=== PATIENT | male | born 1980 | race Caucasian/White ===

== ENCOUNTER 2016-07-30 12:22 | Emergency (ER) | payer BC ==
[2016-07-30 12:31] VITALS: BP 153/96
--- NOTE | 2016-07-30 12:41 | UC ---
Skin Complaint HPI - HPI Summary HPI Summary: I&D og abscess left axilla, seemed to get better-but last night had a hard lump return also got a call that antibiotic should be changed so he came here for re -evaluation - History of Current Complaint Chief Complaint: UCSkin Time Seen by Provider: 07/30/16 12:28 Stated Complaint: WOUND RECHECK Hx Obtained From: Patient Onset/Duration: Gradual Onset, Still Present, Worse Since - yesterday Skin Exposure Onset/Duration: Minutes Ago Timing: Constant Onset Severity: Moderate Current Severity: Mild Location: Discrete - left axilla Character: Redness, Raised - hard with no fluctuant mass, Painful Aggravating: Nothing Alleviating: Nothing Associated Signs & Symptoms: Positive: Negative. Negative: Red Streaks, Joint Swelling - Allergy/Home Medications Allergies/Adverse Reactions: Allergies Allergy/AdvReac Type Severity Reaction Status Date / Time No Known Allergies Allergy Verified 07/08/15 11:44 Review of Systems Constitutional: Negative Skin: Other - abscess left axilla Eyes: Negative ENT: Negative Respiratory: Negative Cardiovascular: Negative Gastrointestinal: Negative Genitourinary: Negative Motor: Negative Neurovascular: Negative Musculoskeletal: Negative Neurological: Negative Psychological: Negative All Other Systems Reviewed And Are Negative: Yes PMH/Surg Hx/FS Hx/Imm Hx Previously Healthy: Yes - Surgical History Surgical History: Yes Surgery Procedure, Year, and Place: bilateral hip pinning - Family History Known Family History: Positive: Cardiac Disease, Hypertension - Social History Occupation: Employed Full-time Lives: With Family Alcohol Use: Weekly Substance Use Type: None, Marijuana Smoking Status (MU): Heavy Every Day Tobacco Smoker Type: Cigarettes Amount Used/How Often: 1 pack daily Length of Time of Smoking/Using Tobacco: 15 years Have You Smoked in the Last Year: Yes Cessation Counseling: Patient Advised to Stop Physical Exam Triage Information Reviewed: Yes Appearance: Well-Appearing, No Pain Distress, Well-Nourished Vital Signs: Initial Vital Signs Temp 99.1 F 07/30/16 12:27 Pulse 74 07/30/16 12:27 Resp 16 07/30/16 12:27 BP 153/96 07/30/16 12:27 Pulse Ox 98 07/30/16 12:27 Vital Signs Reviewed: Yes Eye Exam: Normal Eyes: Positive: Conjunctiva Clear ENT Exam: Normal ENT: Positive: Normal ENT inspection, Hearing grossly normal. Negative: Nasal congestion, Nasal drainage, Trismus, Muffled/hoarse voice Dental Exam: Normal Neck exam: Normal Neck: Positive: Supple, Nontender, No Lymphadenopathy Respiratory Exam: Normal Respiratory: Positive: Chest non-tender, Lungs clear, Normal breath sounds, No respiratory distress, No accessory muscle use Cardiovascular Exam: Normal Cardiovascular: Positive: RRR, Pulses Normal, Brisk Capillary Refill Musculoskeletal Exam: Normal Musculoskeletal: Positive: Strength Intact, ROM Intact, No Edema Neurological Exam: Normal Neurological: Positive: Alert, Muscle Tone Normal Psychological Exam: Normal Skin Exam: Other Skin: Positive: Other - abscess left axilla, had not fluctlance, non-tender Course/Dx - Course Course Of Treatment: heat packs, change to clindamycin follow with surgery for definitive care - Differential Diagnoses - Skin Complaint Differential Diagnoses: Abscess, Cellulitis, Impetigo - Diagnoses Provider Diagnoses: Recurrent abscess left axilla, nicotine dependant Discharge - Discharge Plan Condition: Stable Disposition: HOME Prescriptions: Clindamycin Cap(NF) [Cleocin 300 mg Cap(NF)] 300 mg PO Q6H #40 cap Patient Education Materials: Abscess (ED), Heat Pack Application (ED) Referrals: Miguel Hawkins MD [Medical Doctor] - 5 Days No Primary Care Phys,NOPCP [Primary Care Provider] -
== END 2016-07-30 12:48 | disposition home or self-care (01) ==
LOC: UCEAST 12:22
DX: L02.412 Cutaneous abscess of left axilla (principal); F17.210 Nicotine dependence, cigarettes, uncomplicated
CPT/HCPCS: 99212; G0463

== ENCOUNTER 2018-04-05 17:27 | Emergency (ER) | payer BC ==
--- OUTSIDE RECORDS SUMMARY | 2018-04-05 17:32 | XMS REPORT | Continuity of Care Document ---
:1980 External Reference #:[id number] Author Name Aaron Zamora M.D. Address [address] [place] [place] [address] Care Team Providers Name Role Phone Aaron Zamora M.D. 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 Family History Date Family Member(s) Problem(s) Comments Father Heart Attack Mother Cancer Social History Type Date Description Comments Sex Unknown Marital Status Single Occupation [employer] Work Status Full-Time Employment ETOH Use Denies alcohol use Tobacco Use Start: Unknown Heavy tobacco smoker (more than 10 cigarettes/day) Smoking Status Reviewed: 03/28/18 Heavy tobacco smoker (more than 10 cigarettes/day) Allergies, Adverse Reactions, Alerts Date Description Reaction Status Severity Comments 01/10/2018 NKDA Active 01/10/2018 Hay Fever Active Medications Medication Date Status Form Strength Qnty SIG Indications Ordering Provider Valacyclovir 01/10/ Active Tablets 500mg 60tabs take one B00.52 Aaron HCL 2018 tablet Zablocki, (500mg) M.D. Once a day Prednisolone 01/10/ Active Suspension 1% 15ml 1 drop B00.52 Aaron Acetate 2018 left eye Zablocki, Once a M.D. day. taper as directed No Active Unknown Medications 2018 - 2017 Immunizations Description No Information Available Vital Signs Description No Information Available Results Description No Information Available Procedures Date Code Description Status 01/10/2018 89074 New Patient Comprehensive Exam Completed Encounters Type Date Location Provider Dx Diagnosis Office Visit 02/13/2018 Aaron White B00.52 Herpesviral 8:30a , chloe Zamora M.D. keratitis Office Visit 01/18/2018 Aaron White B00.52 Herpesviral 9:15a , chloe Zamora M.D. keratitis Plan of Treatment 03/28/2018 - Aaron Zamora M.D.B00.52 Herpesviral keratitisComments:Smoking can increase the risk of developing or worsening any eye related disease, as well as affect your overall health. If you are a smoker, we strongly recommend that you quit.If you are not a smoker, we strongly recommend that you do not start. STOP PREDNISOLONE DROPCONTINUE VALACYCLOVIR, 1 TABLET DAILY CALL WITH ANY RETURN OF EYE IRRITATION OR DECREASED VISIONFollow up:6MONTHS, CORNEA CHECK
[2018-04-05 17:34] VITALS: BP 145/90
--- NOTE | 2018-04-05 17:38 | UC ---
Skin Complaint HPI - HPI Summary HPI Summary: A 37 y/o male accompanied by his girlfriend presents to [facility] c/o progressively worsening boil below left armpit. Pt states is has gotten larger and more painful x 1 month. According to the patient, his boil, located below his left armpit has been progressively becoming more swollen and more painful for the past month. He noted that he had another boil last year in his axilla, that was I+D and resolved. The pain is similar between both, however, the previous boil had copious amounts of discharge, but the current boil has very small amount of discharge. He stated that he tried cutting twice, getting deeper the second time around, but not much discharge was found second to pain. Denies any fevers or chills. Currently on antivirals (Valtrex) for his eye and takes a steroid eye drop. No h.o MRSA. Pt unknown last tdap Pt medications reviewed this visit - I called pharmacy to confirm - History of Current Complaint Chief Complaint: UCSkin Time Seen by Provider: 04/05/18 17:33 Stated Complaint: BOIL UNDER ARM Hx Obtained From: Patient Onset/Duration: Lasting Weeks - 3 months, Still Present, Worse Since Skin Exposure Onset/Duration: Weeks Ago - 3 months, Worse Since: - 1 month progressively getting more swollen and painful Timing: Constant Current Severity: None Pain Intensity: 0 Pain Scale Used: 0-10 Numeric Location: Other - Below left armpit Character: Swelling, Pain Aggravating Factor(s): Nothing Alleviating Factor(s): Nothing Associated Signs & Symptoms: Positive: Negative - Allergy/Home Medications Allergies/Adverse Reactions: Allergies Allergy/AdvReac Type Severity Reaction Status Date / Time No Known Allergies Allergy Verified 04/05/18 17:35 Home Medications: Home Medications Antibiotic ? Name 1 tab PO DAILY 04/05/18 [History] Eye Drop ? Name 1 drop LEFT EYE DAILY 04/05/18 [History] Review of Systems Constitutional: Negative Skin: Other - Boil below left armpit that is swollen and painful Eyes: Negative ENT: Negative Respiratory: Negative Cardiovascular: Negative Gastrointestinal: Negative Genitourinary: Negative Motor: Negative Neurovascular: Negative Musculoskeletal: Negative Neurological: Negative Psychological: Negative Is Patient Immunocompromised?: No All Other Systems Reviewed And Are Negative: Yes PMH/Surg Hx/FS Hx/Imm Hx Previously Healthy: Yes Endocrine History: Diabetes - NEGATIVE Cardiovascular History: Hypertension - NEGATIVE Respiratory History: Asthma - NEGATIVE - Surgical History Surgical History: Yes Surgery Procedure, Year, and Place: bilateral hip pinning - Family History Known Family History: Positive: Cardiac Disease, Hypertension - Social History Occupation: Employed Full-time Lives: With Family Alcohol Use: Occasionally Substance Use Type: None Smoking Status (MU): Heavy Every Day Tobacco Smoker - 1-pack per day Type: Cigarettes Amount Used/How Often: 1 pack daily Length of Time of Smoking/Using Tobacco: 15 years Have You Smoked in the Last Year: Yes Physical Exam - Summary Physical Exam Summary: Vital Signs Reviewed: Yes A+Ox3, no distress Eyes: Conjunctiva Clear ENT: Hearing grossly normal neck: supple Respiratory: Positive: No respiratory distress, No accessory muscle use Cardiovascular: skin color reflect adequate perfusion Musculoskeletal Exam: REVELES x 4 without difficulty Neurological: Positive: Alert, ambulatory without difficulty Psychological: Positive: Normal Response To Family Skin: Positive: left midaxillary line at nipple line pt with 3x3 cm area of erythema with fluctuance and warmth. No axillary lymphadenopathy Triage Information Reviewed: Yes Vital Signs: Initial Vital Signs Temp 97.3 F 04/05/18 17:32 Pulse 84 04/05/18 17:32 Resp 12 04/05/18 17:32 BP 145/90 04/05/18 17:32 Pulse Ox 96 04/05/18 17:32 Vital Signs Reviewed: Yes Course/Dx - Course Course Of Treatment: Pt presents with large abscess left mid ax line at nipple line. I+D with copious purulnet discharge - packing place. culture sent. lico. motrin/apap. demarcated. return for packing removal. Pt decline tdap today. work note. wound care - Diagnoses Provider Diagnoses: abscess I+D with packing placed Procedures - Procedure Summary Procedure Summary: Pt with abscess with fluctuance left mid ax line at level of nipple 3x3cm verbal permission to treat time out completed with RN at bedside pt prepped in usual, sterile fashion Infiltrated with 2% lidocaine 2ml use 11 blade made 1cm laceration copious purulent drainage from wound used mosquito forcep to open loculatins copious irrigation with 250ml sterile saline under pressure placed 6inches 1/4 inch iodofoam packing covered with non-stick gauze and tegaderm woiund demarcated pt tolerated well reviewed with pt wound care s/s infection return precautions Discharge - Sign-Out/Discharge Documenting (check all that apply): Patient Departure - DISCHARGE All imaging exams completed and their final reports reviewed: No Studies - Discharge Plan Condition: Stable Disposition: HOME Prescriptions: DOXYcycline CAP(*) [DOXYcycline 100MG CAP(*)] 100 mg PO BID #20 cap Patient Education Materials: Abscess (ED), Abscess Incision and Drainage (DC) Forms: *Work Release Referrals: [facility] [place] [facility]IAN REFERRAL [Outside] No Primary Care Phys,NOPCP [Primary Care Provider] - Additional Instructions: - Take antibiotics exactly as prescribed until gone - Okay to alternate ibuprofen (Advil, Motrin) 600mg and tylenol every 3 hours for pain. Take with food. Do NOT take for more than 4-5 days. - numbing medication will wear off in approx 90 minutes - leave bandage on until tomorrow. Keep wound clean and dry. Starting tomorrow, okay to remove bandage and replace with a clean, dry bandage as demostrated here - consider getting your tetanus vaccine update when you are here for packing removal - a culture from your wound has been taken - if you need a different antibiotics you will receive a call from a care steamtable attendant railroad - you should have your wound rechecked and packing removed in 36-48 hours - you may return here or go to the emergency department. If you have increased pain, fever, red streaking, fever, chills or any other concerns it is recommended you go to the emergency department - you have been given the contact information for the physician referral center - okay to call for assistance in scheduling with a new primary care provider - Billing Disposition and Condition Condition: STABLE Disposition: Home - Attestation Statements Document Initiated by Keila: Yes Documenting Scribe: Castillo Mae Provider For Whom Keila is Documenting (Include Credential): Kiana Carranza MD Scribe Attestation: Castillo Quintero, scribed for Kiana Carranza MD on 04/05/18 at 1947. Scribe Documentation Reviewed: Yes Provider Attestation: The documentation as recorded by the Castillo cuadra accurately reflects the service I personally performed and the decisions made by me, Kiana Carranza MD
[2018-04-05] MEDS ORDERED: Lidocaine 1%* 5 ML VIAL INJ ONE (18:05)
[2018-04-05] MEDS ORDERED: Acetaminophen TAB* 325 MG PO ONE (18:47)
== END 2018-04-05 19:05 | disposition home or self-care (01) ==
LOC: UCEAST 17:27
DX: L02.412 Cutaneous abscess of left axilla (principal); F17.210 Nicotine dependence, cigarettes, uncomplicated
CPT/HCPCS: 10061; 87070; 87077; 87186; 87205; 99212; A9270-GY; G0463

== ENCOUNTER 2018-04-07 13:06 | Emergency (ER) | payer BC ==
[2018-04-07 15:25] VITALS: BP 146/82
--- NOTE | 2018-04-07 15:31 | UC ---
HPI Wound/Suture Re-check - HPI Summary HPI Summary: The pt is a 37 year old M presenting to for a dressing change. He was here a couple of days ago to drain the abscess and is on doxycycline to get rid of it, and is looking to change the dressing. - History Of Current Complaint Chief Complaint: UCWounds Stated Complaint: WOUND RCHECK Time Seen by Provider: 04/07/18 15:20 Hx Obtained From: Patient Onset/Duration: Lasting Days, Still Present Severity: Mild Pain Intensity: 0 Pain Scale Used: 0-10 Numeric Procedure Type: Dressing for abscess drainage on L ribcage under armpit - Allergies/Home Medications Allergies/Adverse Reactions: Allergies Allergy/AdvReac Type Severity Reaction Status Date / Time No Known Allergies Allergy Verified 04/07/18 15:21 PMH/Surg Hx/FS Hx/Imm Hx Previously Healthy: Yes Endocrine History: Diabetes - negative Cancer History: Other Other Cancer History: none - Surgical History Surgical History: Yes Surgery Procedure, Year, and Place: bilateral hip pinning - Family History Known Family History: Positive: Cardiac Disease, Hypertension Family History: NON CONTRIBUTORY - Social History Alcohol Use: Occasionally Substance Use Type: None Smoking Status (MU): Heavy Every Day Tobacco Smoker Type: Cigarettes Amount Used/How Often: 1 pack daily Length of Time of Smoking/Using Tobacco: 15 years Have You Smoked in the Last Year: Yes Review of Systems Constitutional: Negative - fever Skin: Other - dressed abscess drained inferior to L axilla All Other Systems Reviewed And Are Negative: Yes Physical Exam - Summary Physical Exam Summary: General: well-appearing, no pain distress Skin: L lateral chest just inferior to the axilla, 2.5cm erythematous area with packing inside. Removed packing, minimal pus, mildly tender to palpation Head: normal Eyes: EOMI, VICKI ENT: normal Neck: supple, nontender Respiratory: CTA, breath sounds present Cardiovascular: RRR Abdomen: soft, nontender Bowel: present Musculoskeletal: normal, strength/ROM intact Neurological: sensory/motor intact, A&O x3 Psychological: affect/mood appropriate Triage Information Reviewed: Yes Vital Signs: Initial Vital Signs Temp 98.4 F 04/07/18 15:22 Pulse 82 04/07/18 15:22 Resp 18 04/07/18 15:22 BP 146/82 04/07/18 15:22 Pulse Ox 98 04/07/18 15:22 Vital Signs Reviewed: Yes Course/Dx - Course Course Of Treatment: The packing was removed from the wound by myself. Patient reports it appears improved. He will continue the antibiotic. Come back for recheck if he worsens or has any questions or concerns. Final wound culture results and sensitivities are pending at this time. - Differential Dx - Laceration/Wound Provider Diagnoses: LEFT AXILLARY ABSCESS Discharge - Sign-Out/Discharge Documenting (check all that apply): Patient Departure All imaging exams completed and their final reports reviewed: No Studies - Discharge Plan Condition: Stable Disposition: HOME Patient Education Materials: Abscess (ED) Referrals: [facility] [place] [facility] REFERRAL [Outside] Additional Instructions: FOLLOW UP WITH YOUR DOCTOR IF NOT COMPLETELY IMPROVED. DRESSING CHANGES DAILY. CONTINUE THE DOXYCYCLINE DIRECTED. GET RECHECKED FOR ANY WORSENING OF YOUR CONDITION OR QUESTIONS OR CONCERNS. - Billing Disposition and Condition Condition: STABLE Disposition: Home - Attestation Statements Document Initiated by Keila: Yes Documenting Scribe: Silva Johnson Provider For Whom Keila is Documenting (Include Credential): Octavio Villa MD. Scribe Attestation: Silva Quintero scribed for Octavio Villa MD. on 04/07/18 at 2059. Scribe Documentation Reviewed: Yes Provider Attestation: The documentation as recorded by the Silva cuadra accurately reflects the service I personally performed and the decisions made by , Octavio Villa MD.
== END 2018-04-07 15:55 | disposition home or self-care (01) ==
LOC: UCEAST 13:06
DX: Z51.89 Encounter for other specified aftercare (principal); L02.412 Cutaneous abscess of left axilla
CPT/HCPCS: 99212; G0463

== ENCOUNTER 2018-06-05 00:19 | Emergency (ER) | payer BC ==
[2018-06-05] MEDS ORDERED: Ondansetron INJ* 2 MG/ML VIAL IV ONE (00:44)
[2018-06-05] MEDS ORDERED: Morphine VIAL* 4 MG/ML VIAL (1 ml vial) IV ONE ×2 (00:44→03:08)
--- NOTE | 2018-06-05 00:58 | ED ---
Lower Extremity - HPI Summary HPI Summary: Patient is a 38-year-old male who presents emergency apartment for a right leg injury that occurred just prior to arrival. Patient states he was at a friend' s house when he stepped outside to smoke and slipped on the wet steps slipping down about 4 steps. Patient denies striking his head or loss of consciousness. Patient states he is unable to get up secondary to right hip pain. Patient states he laid outside for about 20 minutes before EMS was called. Patient does admit to drinking several beers tonight. He denies past medical history. He denies headache, neck pain, chest pain, shortness of breath, abdominal pain. Denies numbness, tingling or weakness and right leg. Symptoms are moderate in severity. Moving right leg makes symptoms worse. Rest makes symptoms better. - History of Current Complaint Chief Complaint: EDExtremityLower Stated Complaint: FALL Time Seen by Provider: 06/05/18 00:31 Hx Obtained From: Patient Pain Intensity: 8 - Allergies/Home Medications Allergies/Adverse Reactions: Allergies Allergy/AdvReac Type Severity Reaction Status Date / Time No Known Allergies Allergy Verified 06/05/18 00:29 PMH/Surg Hx/FS Hx/Imm Hx Previously Healthy: Yes - Cancer History Cancer Type, Location and Year: none - Surgical History Surgery Procedure, Year, and Place: bilateral hip pinning Infectious Disease History: No Infectious Disease History: Denies: Traveled Outside the [place] in Last 30 Days - Family History Known Family History: Positive: Cardiac Disease, Hypertension Family History: NON CONTRIBUTORY - Social History Occupation: Employed Full-time Lives: With Family Alcohol Use: Occasionally Substance Use Type: Reports: None Smoking Status (MU): Heavy Every Day Tobacco Smoker Type: Cigarettes Amount Used/How Often: 1 pack daily Length of Time of Smoking/Using Tobacco: 15 years Have You Smoked in the Last Year: Yes Review of Systems Cardiovascular: Negative Negative: Chest Pain Respiratory: Negative Negative: Shortness Of Breath Gastrointestinal: Negative Negative: Abdominal Pain Positive: Other - Right hip and ankle pain Negative: Headache, Weakness, Paresthesia, Numbness, Syncope All Other Systems Reviewed And Are Negative: Yes Physical Exam Triage Information Reviewed: Yes Vital Signs On Initial Exam: Initial Vitals Temp Pulse Resp BP Pulse Ox 99.0 F 82 16 119/68 96 06/05/18 00:23 06/05/18 00:23 06/05/18 00:23 06/05/18 00:23 06/05/18 00:23 Vital Signs Reviewed: Yes Appearance: Positive: Well-Appearing - Pt. lying on his left side in NAD. Skin: Positive: Warm, Dry Head/Face: Positive: Normal Head/Face Inspection, Other - Superficial abrasion to left cheek. No carranza sign or racoon eyes. No scalp hematoma. Eyes: Positive: Normal, EOMI, VICKI, Conjunctiva Clear Neck: Positive: Supple, Nontender Respiratory/Lung Sounds: Positive: Clear to Auscultation, Breath Sounds Present Cardiovascular: Positive: Normal, RRR Musculoskeletal: Positive: Other - No midline back tenderness. Good palpable left pedal pulse. Swelling and mild deformity to right lateral malleolus. No foot pain. Achilles tendon intact. Superficial abrasion over right knee without pain. Pain and swelling to right hip. Neurological: Positive: Normal, Alert, Oriented to Person Place, Time, CN Intact II-III Psychiatric: Positive: Affect/Mood Appropriate - Steph Coma Scale Best Eye Response: 4 - Spontaneous Best Motor Response: 6 - Obeys Commands Best Verbal Response: 5 - Oriented Coma Scale Total: 15 Procedures - Splinting Right Lower Extremity Hand-Made Type: orthoglass Splint: stirrup Pre-Proc Neuro Vasc Exam: normal Post-Proc Neuro Vasc Exam: normal Diagnostics - Vital Signs Vital Signs Temp Pulse Resp BP Pulse Ox 06/05/18 00:23 99.0 F 82 16 119/68 96 - Laboratory Result Diagrams: 06/05/18 00:54 06/05/18 00:54 Lab Statement: Any lab studies that have been ordered have been reviewed, and results considered in the medical decision making process. Lower Extremity Course/Dx - Course Course Of Treatment: Patient presenting with right hip and ankle injury. Vital signs are stable. Right leg is neurovascularly intact. No other signs of trauma on exam. Patient is awake alert and oriented 3. Patient initially declined pain medication. When x-ray went to get him for x-rays patient requests plain medication. IV morphine was ordered. ETOH 183. WBC 14. H and H stable. Hip xray shows a comminuted subtrochanteric fracture. Ankle x-ray shows bimalleolar fracture. 0230: I spoke with oncall ortho., Dr. Raymundo, who reviewed pt.'s xray. He is concerned that these types of fractures had to have required a much greater force than fall down 4 steps. He recommends transfer to a trauma center for further evaluation. Discussed plan with pt. who agrees on transfer. Michelle requested. There is no award machine operator in ED tonight. Transfer is being significantly delayed. Ankle splinted. Plan to transfer to [facility] Dr. Myers will arrange transfer. - Diagnoses Differential Diagnosis/HQI/PQRI: Positive: Contusion, Dislocation, Fracture ( Closed), Sprain, Strain Provider Diagnoses: Hip fracture, Ankle fracture Discharge - Sign-Out/Discharge Documenting (check all that apply): Patient Departure - Discharge Plan Condition: Stable Disposition: TRANS HIGHER LVL OF CARE FAC Referrals: No Primary Care Phys,NOPCP [Primary Care Provider] - - Billing Disposition and Condition Condition: STABLE Disposition: Trans Higher Lvl of Care Fac
[2018-06-05 01:07] LABS: ABS Basophils 0.1 10^3/ul (0-0.2); ABS Eosinophils 0.3 10^3/ul (0-0.6); ABS Lymphocytes 1.8 10^3/ul (1.0-4.8); ABS Neutrophils 11.5 10^3/ul (1.5-7.7); ABS Nucleated RBC 0 10^3/ul; Eosinophil % 2.3 % (0-6); Hematocrit 43 % (42-52); Hemoglobin 14.6 g/dl (14.0-18.0); Lymphocyte % 12.2 % (25-47); Mean Corpuscular HGB Conc 34 g/dl (31-36); Mean Corpuscular Hemoglobin 31 pg (27-31); Mean Corpuscular Volume 92 fL (80-94); Nucleated Red Blood Cells % 0.1; Platelet Count 235 10^3/ul (150-450); Red Cell Distribution Width 13 % (10.5-15); White Blood Count 14.7 10^3/ul (3.5-10.8)
[2018-06-05 01:19] LABS: EGFR Non-African American 100.1 (>60)
[2018-06-05 03:38] LABS: INR 0.99 (0.77-1.02)
--- NOTE | 2018-06-05 04:20 | ED ---
Progress - Progress Note Progress Note: Received sign out pending transfer. I spoke with Dr. Fuller and the patient will be transferred to [facility]. The patient will be transferred ALS to their ED. Course/Dx - Course Course Of Treatment: Received sign out pending transfer. I spoke with Dr. Fuller and the patient will be transferred to [facility]. The patient will be transferred ALS to their ED. - Diagnoses Provider Diagnoses: Hip fracture, Ankle fracture Discharge - Sign-Out/Discharge Documenting (check all that apply): Patient Departure - Transfer - Discharge Plan Condition: Stable Disposition: TRANS HIGHER LVL OF CARE FAC Referrals: No Primary Care Phys,NOPCP [Primary Care Provider] - - Billing Disposition and Condition Condition: STABLE Disposition: Trans Higher Lvl of Care Fac - Attestation Statements Document Initiated by Scribe: Yes Documenting Scribe: Frank Jarquin Provider For Whom Hiltone is Documenting (Include Credential): Juan Myers MD Scribe Attestation: IFrank, scribed for Juan Myers MD on 06/05/18 at 0421. Scribe Documentation Reviewed: Yes Provider Attestation: The documentation as recorded by the kavinibFrank ramirez accurately reflects the service I personally performed and the decisions made by me, Juan Myers MD
[2018-06-05] MEDS ORDERED: Morphine VIAL* 4 MG/ML VIAL (1 ml vial) IV PRN (05:46)
[2018-06-05] MEDS ORDERED: Morphine VIAL* 4 MG/ML VIAL (1 ml vial) ONE (05:48)
[2018-06-05] MEDS ORDERED: fentaNYL* 50 MCG/ML 2 ML VIAL (100 MCG VIAL) IV SLOW PU ONE (06:07)
[2018-06-05 07:50] VITALS: BP 115/59
== END 2018-06-05 07:47 | disposition short-term general hospital (02) ==
LOC: ED 00:19
DX: S72.001A Fracture of unspecified part of neck of right femur, initial encounter for closed fracture (principal); S82.891A Other fracture of right lower leg, initial encounter for closed fracture; W00.1XXA Fall from stairs and steps due to ice and snow, initial encounter; Y92.018 Other place in single-family (private) house as the place of occurrence of the external cause; F17.210 Nicotine dependence, cigarettes, uncomplicated
CPT/HCPCS: 36415; 71045; 80053; 80320; 85025; 85610; 85730; 96374; 96375; 96376; 99284; G0480; J2270; J2405; J3010

== ENCOUNTER 2018-06-11 12:56 | Inpatient (IN) | payer BC ==
[2018-06-11] MEDS ORDERED: Magnesium Hydroxide LIQ* 30 ML UDC PO PRN (16:30)
[2018-06-11] MEDS: Cyclobenzaprine TAB* 10 MG PO PRN (17:14)
[2018-06-11] MEDS: oxyCODONE TAB* 5 MG TAB PO PRN ×2 (17:15→22:00)
[2018-06-11] MEDS: Docusate CAP* 100 MG PO SCH (21:58)
[2018-06-11] MEDS: Senna TAB PO SCH (21:58)
[2018-06-11] MEDS: Enoxaparin(*) 30 MG/0.3 ML SYR SUBCUT SCH (22:00)
--- NOTE | 2018-06-11 22:31 | HP ---
ADMISSION HISTORY AND PHYSICAL: DATE OF ADMISSION: 06/11/18 REASON FOR ADMISSION: Right femur fracture, right bimalleolar ankle fracture. HISTORY OF PRESENT ILLNESS: Delio Capellan is a 38-year-old male. He does not have any medical history and has not seen a physician in a while. On 06/04/18, the patient was at a friend's house with his significant other. He was drinking. He slipped on a wooden porch, falling down 7 steps, landing and striking on the right side. He did not hit his head in the fall and there was no loss of consciousness. The patient was helped up and had significant pain in his groin as well as his right ankle. With the help of 2 friends, he was able to transition to a nearby vehicle. However, once sitting in the vehicle, he knew he would not be able to make the trip to the hospital and EMS was called. The patient was brought to [facility]. The patient had x-rays taken of his hip and pelvis as well as his ankle on the right side. A comminuted subtrochanteric right femur fracture was seen. He also had a displaced fracture of the distal right fibular metaphysis and the right tibial malleolus. The patient's fractures were felt to be beyond the scope of the on-call orthopedist and he was transferred to [facility]. Of note, his blood alcohol upon arrival was 0.183. Upon arrival at [facility], Orthopedics was consulted for his right femur fracture and right bimalleolar ankle fracture. Orthopedics recommended surgical fixation. On 06/05/18, he underwent intramedullary nailing with lateral entry with a Recon nail of the right subtrochanteric femur fracture as well as an open reduction and internal fixation of the right bimalleolar ankle fracture with placement of thin syndesmotic screws. On 06/07/18, he began to work with Physical Therapy and Occupational Therapy. He was nonweightbearing on the right side. He was felt to have physical therapy and occupational therapy needs and acute rehab was recommended. The patient is now being admitted to inpatient rehab, so that he might return to independent living. Also of note is that during his workup in the emergency room at [facility], he had a CAT scan of his head. A questionable 2.5 cm hyperdense mass within the anterior cranial fossa was seen, which could be consistent with a meningioma. This will need followup after discharge. 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 He had bilateral hip pinnings as a 16-year-old. The patient also has a history of heavy alcohol use in his late 20s and early 30s. After a DUI, the patient said he cut way back on his drinking. He does not go to AA. CURRENT MEDICATIONS: Include: 1. Oxycodone for pain relief. 2. He is on Tylenol. 3. Bowel medications. 4. Lovenox for DVT prophylaxis. ALLERGIES: He has no known drug allergies. SOCIAL HISTORY: He is a pack-a-day smoker. Drinks several times a week. He lives with his girlfriend in a second story apartment. There are [address] steps to enter. 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 REVIEW OF SYSTEMS: The patient reports no current shortness of breath or chest pain. PHYSICAL EXAMINATION VITAL SIGNS: The patient's temperature is 99.5, blood pressure is 145/66, pulses are 100, respirations are 18. HEENT: His extraocular movements are intact. Tongue is midline. NECK: Supple. LUNGS: Sounded clear to auscultation bilaterally. HEART: Sounds are regular. S1 and S2 are audible. ABDOMEN: Soft and nontender. EXTREMITIES: His right ankle is in a cast. He can wiggle his toes. He has a suture line on his right thigh, which is clean and dry. NEUROLOGIC: The patient was awake, alert, and oriented. Muscle strength 5/5 in his upper extremities. Left lower extremity is 5/5. Right lower extremity is hard to test because of the cast. He can wiggle his toes and move his right leg to command. ASSESSMENT: Right subtrochanteric femur fracture, status post IM nailing and right bimalleolar ankle fracture with open reduction and internal fixation and placement of syndesmotic screws. PLAN: We are going to integrate him into a comprehensive and therapeutic rehab program with the following goals: 1. Physical Therapy will work with the patient. They are going to work on functional transfer training, ambulation training with a walker. 2. Occupational Therapy will see the patient, work on his activities of daily living including toileting and toilet transfers. 3. Lovenox for DVT prophylaxis. 4. Adequate analgesia. 5. His bowels will be regulated. 6. For nicotine addiction, we will offer a nicotine inhaler or nicotine patch. 7. visitor services information assistant will be closely involved to make sure that any services and equipment the patient requires are in place prior to discharge. 8. Family training as appropriate. 9. Home with appropriate services. ESTIMATED LENGTH OF STAY: 10 days. [id number]/CPS #: [id number] CHAPIS
[2018-06-12] MEDS: Acetaminophen TAB* 325 MG PO PRN (00:24)
[2018-06-12] MEDS: Cyclobenzaprine TAB* 10 MG PO PRN (00:24)
[2018-06-12 05:53] LABS: ABS Basophils 0 10^3/ul (0-0.2); ABS Eosinophils 0.4 10^3/ul (0-0.6); ABS Lymphocytes 1.2 10^3/ul (1.0-4.8); ABS Monocytes 0.7 10^3/ul (0-0.8); ABS Neutrophils 2.9 10^3/ul (1.5-7.7); ABS Nucleated RBC 0 10^3/ul; Eosinophil % 7.3 %; Hematocrit 30 % (42-52); Hemoglobin 10.2 g/dl (14.0-18.0); Lymphocyte % 23.3 %; Mean Corpuscular HGB Conc 34 g/dl (31-36); Mean Corpuscular Hemoglobin 31 pg (27-31); Mean Corpuscular Volume 91 fL (80-94); Mean Platelet Volume 7.3 fL (7.4-10.4); Nucleated Red Blood Cells % 0; Platelet Count 293 10^3/ul (150-450); Red Blood Count 3.28 10^6/ul (4.00-5.40); Red Cell Distribution Width 13 % (10.5-15); White Blood Count 5.1 10^3/ul (3.5-10.8)
[2018-06-12] MEDS: Docusate CAP* 100 MG PO SCH ×2 (08:49→20:50)
[2018-06-12] MEDS: prednisoLONE 1% OPHTH.SUSP* 5 ML OPHTH.SUSP LEFT EYE SCH (08:50)
[2018-06-12] MEDS: Enoxaparin(*) 30 MG/0.3 ML SYR SUBCUT SCH ×2 (08:51→20:50)
[2018-06-12] MEDS: oxyCODONE TAB* 5 MG TAB PO PRN ×3 (08:52→17:29)
--- NOTE | 2018-06-12 12:25 | PMRUTEAM ---
PMRU: Team Meeting Current Status: Nursing: Current Status Skin Deviations [back, Rash bilateral arms] Skin Deviations [Right Lower Incision Leg] Skin Deviations [Right Lateral Incision Thigh] Skin Deviations [Right Lateral Incision Hip] Skin Deviation Description [ red raised rash back, bilateral arms] Skin Deviation Description [ cast with hasfa intact Right Lower Leg] Skin Deviation Description [ drsg removed. no drainage noted. natacha intact. Right Lateral Thigh] ASSEMBLER SKYLIGHTS Skin Deviation Description [ drsg removed. no drainage noted. natacha intact. Right Lateral Hip] LAURY Bladder Current Status voids in br and also uses urinal Bowel Current Status bm 06/12/18, colace declined this am Nutrition Current Status appetite good Medication Current Status oxycodone given Physical Therapy: Current Status Bed Mobility Assistance Mod Assist Transfer Moblility Assistance Contact Guard Assist,Min Assist Transfer/Bed Mobility Rolling Walker Recommended Devices Transfer Mobility Comment patient has difficutly maintaining weightbearing limitation without assist. Stairs Assistance Not Tested Occupational Therapy: Current Status Upper Body Dressing Supervision Lower Body Dressing Mod Assist Bathing Mod Assist Toileting Mod Assist Toilet Transfer Min Assist Toilet Transfer Progress with v/c's for NWB RLE, assist to move RLE forward to maintain Shower Transfer Min Assist Shower Transfer Progress with v/c's for NWB RLE, assist to move RLE forward to maintain Eating Independent Nutrition: Current Status Monitoring Pt admitted to PMRU s/p fall and R subtrochanteric femur fx and R bimalleolar ankle fx s/p repair. Ate 100% of D last night and 100% of B today; BM today as well. No skin breakdown noted; Trey 19 (low risk). No acute nutrition concerns identified per chart review. Full nutrition assessment to follow per [facility]. Goals: Physical Therapy: Initial Goals Bed Mobility Assistance Independent Transfer Mobility Assistance Independent Transfer/Bed Mobility Rolling Walker,Axillary Crutches Recommended Devices Ambulation Independent Ambulation Recommended Devices Rolling Walker,Axillary Crutches Ambulation Distance 150 Wheelchair Propulsion Ability Independent Wheelchair Distance (ft) 150 Stairs Assistance Independent Stair Recommended Devices Crutches,One Rail Number of Stairs 20 Occupational Therapy: Initial Goals Goals to be Completed in (Days 7-10 ) Upper Body Bathing Routine Independent Lower Body Bathing Routine Modified Independent with Upper Body Dressing Routine Independent Lower Body Dressing Routine Modified Independent with Toilet Hygeine and Clothing Modified Independent with Management Routine Toilet Transfer Routine Modified Independent with Tub Transfer Routine Modified Independent with Functional Transfers for ADL Modified Independent with Grooming Routine Independent Feeding Routine Independent Nursing: Goals Bladder Goal independently Bowel Goal independent Nutrition Goal 100% of all meals Medication Goal independent Nutrition: Goals Intervention Goals 1. Intake will remain adequate to promote healing and preserve lean body mass 2. Pt will maintain regular bowel pattern without constipation (or diarrhea) Care Plan: Care Plan DVT Prophylaxis- Improve/Maintain Start: 06/12/18 11:18 Freq: QSHIFT Status: Active Target: Protocol: Activity Type Activity Date Activity User E-Sign Co-Sign Detail Recorded Client Recorded Date Recorded By Document 06/12/18 11:18 [id number] 06/12/18 11:20 [id number] 06/12/18 11:18 PMRU Outcome: DVT Prophylaxis Outcome/Goals Complies with DVT Prophylaxis /Treatment Demonstrates Knowledge of DVT Prevention/ Treatment Progression Toward Outcome/Goals Progressing Education-Improve/Maintain Start: 06/12/18 11:18 Freq: QSHIFT Status: Active Target: Protocol: Activity Type Activity Date Activity User E-Sign Co-Sign Detail Recorded Client Recorded Date Recorded By Document 06/12/18 11:18 [id number] 06/12/18 11:20 [id number] 06/12/18 11:18 PMRU Outcome: Education Outcome/Goals Encourage Questions Progression Toward Outcome/Goals Progressing /GI-Improve/Maintain Start: 06/12/18 11:18 Freq: QSHIFT Status: Active Target: Protocol: Activity Type Activity Date Activity User E-Sign Co-Sign Detail Recorded Client Recorded Date Recorded By Document 06/12/18 11:18 [id number] 06/12/18 11:20 [id number] 06/12/18 11:18 PMRU Outcome: Genitourinary/ Gastrointestinal Genitourinary- Outcome/Goals Remain Free of Hospital- Acquired UTI Gastrointestinal-Outcome/Goals Prevent Constipation Laxatives as Ordered Progression Toward Outcome/Goals - Progressing Progression Toward Outcome/Goals - GI Progressing Medication Administration Start: 06/12/18 11:18 Freq: QSHIFT Status: Active Target: Protocol: Activity Type Activity Date Activity User E-Sign Co-Sign Detail Recorded Client Recorded Date Recorded By Document 06/12/18 11:18 [id number] 11/27/18 11:20 [id number] 06/12/18 11:18 PMRU Outcome: Medication Administration Assess Patient Knowledge/Teach Med Yes Education for all Meds Outcome/Goals Family/ Caregiver Administer Medications at Home Progression Towards Outcome/Goals Progressing Is Patient Going Home on Lovenox? No Pain/Comfort- Improve/Maintain Start: 06/12/18 11:18 Freq: QSHIFT Status: Active Target: Protocol: Activity Type Activity Date Activity User E-Sign Co-Sign Detail Recorded Client Recorded Date Recorded By Document 06/12/18 11:18 [id number] 06/12/18 11:20 [id number] 06/12/18 11:18 PMRU Outcome: Pain/Comfort Outcome/Goals Demonstrates Knowledge and Use of Available Comfort Measures Achieves Acceptable Comfort/Pain Level as Determined by Patient/Condit Maintain Comfort Level Allowing Patient to Fully Participate in Rehab Progression Toward Outcome/Goals Progressing Outcome/Goals Met Comment patient given oxycodone this am Skin- Improve/Maintain Start: 06/12/18 11:18 Freq: QSHIFT Status: Active Target: Protocol: Activity Type Activity Date Activity User E-Sign Co-Sign Detail Recorded Client Recorded Date Recorded By Document 06/12/18 11:18 [id number] 06/12/18 11:20 [id number] 06/12/18 11:18 PMRU Outcome: Skin Skin Risk Level Low Skin Orders Teach Patient Outcome/Goals Maintain/ Improve Skin Intergrity Surgical Incisions Healing Progression Toward Outcome/Goals Progressing Medicine Note: Length of Stay: 10 days Anticipated Discharge Destination: Tentative Discharge Date: 06/22/18 Discharged to: home
[2018-06-12] MEDS ORDERED: Hydrocortisone 1% CREAM* 30 GM TUBE TOPICAL ONE (13:36)
[2018-06-12] MEDS: Hydrocortisone 1% CREAM* 30 GM TUBE TOPICAL SCH ×2 (13:37→20:52)
--- NOTE | 2018-06-12 18:19 | PN ---
Progress Note Date of Service: 06/12/18 Note: CHIRAG ALMEIDA was visited. Therapy notes read and reviewed. He was discussed in interdisciplinary team rounds. He has good upper body strength so that should help him get home. His right thigh is quite swollen. Current Medications: Active Medications Generic Name Dose Route Start Last Admin Trade Name Freq PRN Reason Stop Dose Admin Acetaminophen 650 mg 06/11/18 16:30 06/12/18 00:24 Tylenol Tab* PO 650 mg Q6H PRN Administration FEVER/PAIN Cyclobenzaprine HCl 10 mg 06/11/18 16:38 06/12/18 00:24 Flexeril Tab* PO 10 mg TID PRN Administration SPASMS Docusate Sodium 100 mg 06/11/18 21:00 06/12/18 08:49 Colace Cap* PO Not Given BID VIJAYA Enoxaparin Sodium 30 mg 06/11/18 21:00 06/12/18 08:51 Lovenox(*) SUBCUT 30 mg Q12H VIJAYA Administration Hydrocortisone 1 applic 06/12/18 21:00 06/12/18 13:37 Hytone Cream 1%* TOPICAL 1 applic BID VIJAYA Administration Magnesium Hydroxide 30 ml 06/11/18 16:30 Milk Of Magnesia Liq* PO Q6H PRN CONSTIPATION Oxycodone HCl 5 mg 06/11/18 16:37 06/12/18 13:24 Roxycodone Tab* PO 5 mg Q4H PRN Administration PAIN - MODERATE TO SEVERE Oxycodone HCl 10 mg 06/11/18 16:39 06/12/18 17:29 Roxycodone Tab* PO 10 mg Q4H PRN Administration PAIN - SEVERE Prednisolone Acetate 1 drop 06/12/18 09:00 06/12/18 08:50 Pred Forte 1%* LEFT EYE 1 drop DAILY VIJAYA Administration Senna 2 tab 06/11/18 21:00 06/11/18 21:58 Senokot Tab* PO 2 tab BEDTIME VIJAYA Administration Vital Signs: Vital Signs Temp Pulse Resp BP Pulse Ox 98.9 F 105 16 112/61 97 06/12/18 15:37 06/12/18 15:37 06/12/18 17:29 06/12/18 15:37 06/12/18 15:37 Lab Results: Laboratory Results - last 24 hr 06/12/18 05:41 WBC 5.1 RBC 3.28 L Hgb 10.2 L Hct 30 L MCV 91 MCH 31 MCHC 34 RDW 13 Plt Count 293 MPV 7.3 L Neut % (Auto) 56.1 Lymph % (Auto) 23.3 [place] % (Auto) 13.0 Eos % (Auto) 7.3 Baso % (Auto) 0.3 Absolute Neuts (auto) 2.9 Absolute Lymphs (auto) 1.2 Absolute Monos (auto) 0.7 Absolute Eos (auto) 0.4 Absolute Basos (auto) 0 Absolute Nucleated RBC 0 Nucleated RBC % 0 Exam: GENERAL: No distress LUNGS; Clear HEART: reg rhythm ABDOMEN: Soft, +BS EXTREMITIES: RLE: thigh swollen. His right calf in soft cast NEUROLOGIC: sensation intact. Can move 4 extremities Assessment/Plan: 1. Right subtrochanteric femur fracture, S/P IM Nail: PT/OT 2. Right bimalleolar ankle fracture: PT/OT. NWB RLE 3. Swelling right thigh: Doppler 4. DVT Prophylaxis: Lovenox 30 BID 5. Analgesia: Hydrocodone 06/12/18 18:17
[2018-06-12] MEDS: Senna TAB PO SCH (20:50)
[2018-06-13] MEDS: Acetaminophen TAB* 325 MG PO PRN (00:05)
[2018-06-13 07:08] LABS: ABS Basophils 0 10^3/ul (0-0.2); ABS Eosinophils 0.4 10^3/ul (0-0.6); ABS Monocytes 0.7 10^3/ul (0-0.8); ABS Neutrophils 3.8 10^3/ul (1.5-7.7); ABS Nucleated RBC 0 10^3/ul; Eosinophil % 7.4 %; Hematocrit 30 % (42-52); Hemoglobin 10.2 g/dl (14.0-18.0); Mean Corpuscular HGB Conc 34 g/dl (31-36); Mean Corpuscular Hemoglobin 31 pg (27-31); Mean Corpuscular Volume 92 fL (80-94); Mean Platelet Volume 7.1 fL (7.4-10.4); Nucleated Red Blood Cells % 0; Platelet Count 324 10^3/ul (150-450); Red Blood Count 3.32 10^6/ul (4.00-5.40); Red Cell Distribution Width 13 % (10.5-15)
[2018-06-13 07:32] LABS: EGFR Non-African American 135.8 (>60)
[2018-06-13] MEDS: Hydrocortisone 1% CREAM* 30 GM TUBE TOPICAL SCH ×2 (08:45→20:28)
[2018-06-13] MEDS: prednisoLONE 1% OPHTH.SUSP* 5 ML OPHTH.SUSP LEFT EYE SCH (08:45)
[2018-06-13] MEDS: Enoxaparin(*) 30 MG/0.3 ML SYR SUBCUT SCH ×2 (08:46→20:33)
[2018-06-13] MEDS: oxyCODONE TAB* 5 MG TAB PO PRN ×3 (08:49→20:39)
[2018-06-13] MEDS: Docusate CAP* 100 MG PO SCH ×2 (08:50→20:28)
--- NOTE | 2018-06-13 19:32 | PN ---
Progress Note Date of Service: 06/13/18 Note: CHIRAG ALMEIDA was visited. Therapy notes read and reviewed. He had a doppler of his right thigh which was negative for DVT. I was not able to contact Dr. Gilman's office regarding a scooter yet (we are not sure he can weight bear through his knee) Current Medications: Active Medications Generic Name Dose Route Start Last Admin Trade Name Freq PRN Reason Stop Dose Admin Acetaminophen 650 mg 06/11/18 16:30 06/13/18 00:05 Tylenol Tab* PO 650 mg Q6H PRN Administration FEVER/PAIN Cyclobenzaprine HCl 10 mg 06/11/18 16:38 06/12/18 00:24 Flexeril Tab* PO 10 mg TID PRN Administration SPASMS Docusate Sodium 100 mg 06/11/18 21:00 06/13/18 08:50 Colace Cap* PO Not Given BID VIJAYA Enoxaparin Sodium 30 mg 06/11/18 21:00 06/13/18 08:46 Lovenox(*) SUBCUT 30 mg Q12H VIJAYA Administration Hydrocortisone 1 applic 06/12/18 21:00 06/13/18 08:45 Hytone Cream 1%* TOPICAL 1 applic BID VIJAYA Administration Magnesium Hydroxide 30 ml 06/11/18 16:30 Milk Of Magnesia Liq* PO Q6H PRN CONSTIPATION Oxycodone HCl 5 mg 06/11/18 16:37 06/12/18 13:24 Roxycodone Tab* PO 5 mg Q4H PRN Administration PAIN - MODERATE TO SEVERE Oxycodone HCl 10 mg 06/11/18 16:39 06/13/18 14:55 Roxycodone Tab* PO 10 mg Q4H PRN Administration PAIN - SEVERE Prednisolone Acetate 1 drop 06/12/18 09:00 06/13/18 08:45 Pred Forte 1%* LEFT EYE 1 drop DAILY VIJAYA Administration Senna 2 tab 06/11/18 21:00 06/12/18 20:50 Senokot Tab* PO 2 tab BEDTIME VIJAYA Administration Vital Signs: Vital Signs Temp Pulse Resp BP Pulse Ox 98.5 F 93 16 134/62 98 06/13/18 15:40 06/13/18 15:40 06/13/18 17:00 06/13/18 15:40 06/13/18 15:40 Lab Results: Laboratory Results - last 24 hr 06/13/18 06/13/18 06:59 06:59 WBC 6.0 RBC 3.32 L Hgb 10.2 L Hct 30 L MCV 92 MCH 31 MCHC 34 RDW 13 Plt Count 324 MPV 7.1 L Neut % (Auto) 64.4 Lymph % (Auto) 17.0 [place] % (Auto) 11.1 Eos % (Auto) 7.4 Baso % (Auto) 0.1 Absolute Neuts (auto) 3.8 Absolute Lymphs (auto) 1.0 Absolute Monos (auto) 0.7 Absolute Eos (auto) 0.4 Absolute Basos (auto) 0 Absolute Nucleated RBC 0 Nucleated RBC % 0 Sodium 135 Potassium 3.9 Chloride 102 Carbon Dioxide 27 Anion Gap 6 BUN 13 Creatinine 0.66 L Est GFR ( Amer) 164.3 Est GFR (Non-Af Amer) 135.8 BUN/Creatinine Ratio 19.7 Glucose 107 H Calcium 8.4 L Total Bilirubin 0.60 AST 51 H ALT 76 H Alkaline Phosphatase 58 Total Protein 6.3 L Albumin 3.2 Globulin 3.1 Albumin/Globulin Ratio 1.0 Exam: GENERAL: No distress LUNGS; Clear HEART: reg rhythm ABDOMEN: Soft, +BS EXTREMITIES: RLE: thigh swollen. His right calf in soft cast NEUROLOGIC: sensation intact. Can move 4 extremities Assessment/Plan: 1. Right subtrochanteric femur fracture, S/P IM Nail: PT/OT 2. Right bimalleolar ankle fracture: PT/OT. NWB RLE 3. Swelling right thigh: Doppler negative 4. DVT Prophylaxis: Lovenox 30 BID 5. Analgesia: Oxycodone 06/13/18 19:39 06/13/18 19:40
[2018-06-13] MEDS: Senna TAB PO SCH (20:29)
[2018-06-14] MEDS: prednisoLONE 1% OPHTH.SUSP* 5 ML OPHTH.SUSP LEFT EYE SCH (07:58)
[2018-06-14] MEDS: Hydrocortisone 1% CREAM* 30 GM TUBE TOPICAL SCH ×2 (07:58→20:21)
[2018-06-14] MEDS: Enoxaparin(*) 30 MG/0.3 ML SYR SUBCUT SCH ×2 (08:02→20:17)
[2018-06-14] MEDS: oxyCODONE TAB* 5 MG TAB PO PRN ×3 (08:03→22:05)
[2018-06-14] MEDS: Docusate CAP* 100 MG PO SCH ×2 (08:03→20:16)
[2018-06-14] MEDS: Cyclobenzaprine TAB* 10 MG PO PRN ×2 (08:05→22:04)
[2018-06-14] MEDS ORDERED: diPHENhydraMINE PO* 50 MG PO PRN (12:02)
--- NOTE | 2018-06-14 12:16 | PN ---
Progress Note Date of Service: 06/14/18 Note: CHIRAG ALMEIDA was visited. Nursing and therapy notes read and reviewed. Has return of cyst to left chest wall. He originally developed it about 4 months ago and had it lanced and treated with antibiotics about 4 months ago. It returned about a month ago and he self-expressed it. It showed up again last night and this morning is painful to touch. No other chest pain, shortness of breath or abdominal pain. He does have a cough since not smoking since admission. Itching is improving. Current Medications: Active Medications Generic Name Dose Route Start Last Admin Trade Name Freq PRN Reason Stop Dose Admin Acetaminophen 650 mg 06/11/18 16:30 06/13/18 00:05 Tylenol Tab* PO 650 mg Q6H PRN Administration FEVER/PAIN Cephalexin HCl 500 mg 06/14/18 13:00 Keflex Cap* PO QID VIJAYA Cyclobenzaprine HCl 10 mg 06/11/18 16:38 06/14/18 08:05 Flexeril Tab* PO 10 mg TID PRN Administration SPASMS Diphenhydramine HCl 50 mg 06/14/18 12:02 Benadryl Po* PO Q6H PRN ITCHING Docusate Sodium 100 mg 06/11/18 21:00 06/14/18 08:03 Colace Cap* PO Not Given BID VIJAYA Enoxaparin Sodium 30 mg 06/11/18 21:00 06/14/18 08:02 Lovenox(*) SUBCUT 30 mg Q12H VIJAYA Administration Hydrocortisone 1 applic 06/12/18 21:00 06/14/18 07:58 Hytone Cream 1%* TOPICAL 1 applic BID VIJAYA Administration Magnesium Hydroxide 30 ml 06/11/18 16:30 Milk Of Magnesia Liq* PO Q6H PRN CONSTIPATION Oxycodone HCl 5 mg 06/11/18 16:37 06/12/18 13:24 Roxycodone Tab* PO 5 mg Q4H PRN Administration PAIN - MODERATE TO SEVERE Oxycodone HCl 10 mg 06/11/18 16:39 06/14/18 08:03 Roxycodone Tab* PO 10 mg Q4H PRN Administration PAIN - SEVERE Prednisolone Acetate 1 drop 06/12/18 09:00 06/14/18 07:58 Pred Forte 1%* LEFT EYE 1 drop DAILY VIJAYA Administration Senna 2 tab 06/11/18 21:00 06/13/18 20:29 Senokot Tab* PO 2 tab BEDTIME VIJAYA Administration Vital Signs: Vital Signs Temp Pulse Resp BP Pulse Ox 98.2 F 85 16 129/64 100 06/14/18 05:34 06/14/18 05:34 06/14/18 08:06 06/14/18 05:34 06/14/18 05:34 Exam: GENERAL: No acute distress. Alert and appropriate. LUNGS; Clear to auscultation bilaterally. HEART: regular rate and rhythm ABDOMEN: Soft, + bowel sounds, non-tender, non-distended EXTREMITIES: RLE: thigh swollen. His right lower leg in soft cast NEUROLOGIC: sensation intact x4. Can move 4 extremities SKIN: Left chest wall with approximately 3cm x 5cm cyst that is tender to touch and with mild erythema. Assessment/Plan: 1. Right subtrochanteric femur fracture, S/P IM Nail: f/u Dr. Gilman. I called [facility] today and was told not a good candidate for knee weight bearing due to the severity and communition of his proximal femur fracture. PT/OT 2. Right bimalleolar ankle fracture s/p ORIF: PT/OT. NWB RLE 3. Swelling right thigh: Doppler negative 4. DVT Prophylaxis: Lovenox 30 BID 5. Analgesia: Oxycodone 6. Left chest wall cyst: Start keflex 500mg qid and I called for a surgery consultation. 7. Itching: benadryl prn. 8. Mild transaminitis: f/u P33 in AM for trend. 9. Estimated LOS: 05/23/18. 06/14/18 12:12
[2018-06-14] MEDS: Cephalexin CAP* 500 MG PO SCH ×3 (14:08→20:15)
--- NOTE | 2018-06-14 17:42 | PN ---
Progress Note - Progress Note Date of Service: 06/14/18 SOAP: Subjective:reports recurrent sebaceous cyst on left chest wall that was opened and drained at Urgent care about 2 months ago and more recently spontaneously drained pus;yesterday he noticed a pimple like spot,redness and tenderness [] Objective:4x2cm area of erythema with punctum left lateral chest wall,tender,no expressible drainage;consistent with sebaceous cyst [] Assessment:asked by Dr Reddy to assess for I&D;she started pt on Keflex today [] Plan:after pt consent,time out protocol completed,betadine prepped,local anesthesia Lidocaine plain 1% infiltrated and under sterile conditions Incision and Drainage carried out,bloody sebaceous material forthcoming was cultured; hemostasis was assured;wound was packed open with 1/2" Iodoform gauze and covered with bulky 4x4's;[facility] will reassess tomorrow;Dr Lowery explained that formal excision of the cyst wall is advised in 2-3 weeks in our office. []
[2018-06-14] MEDS: Senna TAB PO SCH (20:16)
[2018-06-15] MEDS: Acetaminophen TAB* 325 MG PO PRN (05:12)
[2018-06-15] MEDS: prednisoLONE 1% OPHTH.SUSP* 5 ML OPHTH.SUSP LEFT EYE SCH (08:15)
[2018-06-15] MEDS: Cephalexin CAP* 500 MG PO SCH ×4 (08:15→21:06)
[2018-06-15] MEDS: Hydrocortisone 1% CREAM* 30 GM TUBE TOPICAL SCH ×2 (08:15→21:27)
[2018-06-15] MEDS: Docusate CAP* 100 MG PO SCH ×2 (08:16→21:06)
[2018-06-15] MEDS: oxyCODONE TAB* 5 MG TAB PO PRN ×3 (08:16→21:07)
[2018-06-15] MEDS: Enoxaparin(*) 30 MG/0.3 ML SYR SUBCUT SCH ×2 (08:17→21:09)
--- NOTE | 2018-06-15 10:02 | PN ---
Progress Note Date of Service: 06/15/18 Note: CHIRAG ALMEIDA was visited. Nursing and therapy notes read and reviewed. Appreciate surgical consult yesterday and I+D of sebbaceous cyst. He is having less pain. No chest pain, shortness of breath or abdominal pain. Had some right anterior foot and leg numbness in therapy yesterday afternoon that resolved with position change. I saw him in the gym at the time. Current Medications: Active Medications Generic Name Dose Route Start Last Admin Trade Name Freq PRN Reason Stop Dose Admin Acetaminophen 650 mg 06/11/18 16:30 06/15/18 05:12 Tylenol Tab* PO 650 mg Q6H PRN Administration FEVER/PAIN Cephalexin HCl 500 mg 06/14/18 13:00 06/15/18 08:15 Keflex Cap* PO 500 mg QID VIJAYA Administration Cyclobenzaprine HCl 10 mg 06/11/18 16:38 06/14/18 22:04 Flexeril Tab* PO 10 mg TID PRN Administration SPASMS Diphenhydramine HCl 50 mg 06/14/18 12:02 06/14/18 16:15 Benadryl Po* PO 50 mg Q6H PRN Administration ITCHING Docusate Sodium 100 mg 06/11/18 21:00 06/15/18 08:16 Colace Cap* PO 100 mg BID VIJAYA Administration Enoxaparin Sodium 30 mg 06/11/18 21:00 06/15/18 08:17 Lovenox(*) SUBCUT 30 mg Q12H VIJAYA Administration Hydrocortisone 1 applic 06/12/18 21:00 06/15/18 08:15 Hytone Cream 1%* TOPICAL 1 applic BID VIJAYA Administration Magnesium Hydroxide 30 ml 06/11/18 16:30 Milk Of Magnesia Liq* PO Q6H PRN CONSTIPATION Oxycodone HCl 5 mg 06/11/18 16:37 06/12/18 13:24 Roxycodone Tab* PO 5 mg Q4H PRN Administration PAIN - MODERATE TO SEVERE Oxycodone HCl 10 mg 06/11/18 16:39 06/15/18 08:16 Roxycodone Tab* PO 10 mg Q4H PRN Administration PAIN - SEVERE Prednisolone Acetate 1 drop 06/12/18 09:00 06/15/18 08:15 Pred Forte 1%* LEFT EYE 1 drop DAILY VIJAYA Administration Senna 2 tab 06/11/18 21:00 06/14/18 20:16 Senokot Tab* PO 2 tab BEDTIME VIJAYA Administration Vital Signs: Vital Signs Temp Pulse Resp BP Pulse Ox 98.2 F 76 16 124/62 100 06/15/18 05:16 06/15/18 05:16 06/15/18 08:16 06/15/18 05:16 06/15/18 05:16 Lab Results: Gram stain from left chest cyst 06/14/18 showed neutrophils, but no organisms yet. Exam: GENERAL: No acute distress. Alert and appropriate. LUNGS; Clear to auscultation bilaterally. HEART: regular rate and rhythm ABDOMEN: Soft, + bowel sounds, non-tender, non-distended EXTREMITIES: RLE: thigh less swollen. His right lower leg in soft cast NEUROLOGIC: sensation intact x4. Can move 4 extremities SKIN: Left chest wall dressing c/d/i. Assessment/Plan: 1. Right subtrochanteric femur fracture, S/P IM Nail: f/u Dr. Gilman. Not a good candidate for knee weight bearing due to the severity and communition of his proximal femur fracture. PT/OT 2. Right bimalleolar ankle fracture s/p ORIF: PT/OT. NWB RLE 3. Swelling right thigh: Doppler negative 4. DVT Prophylaxis: Lovenox 30 BID 5. Analgesia: Oxycodone 6. Left chest wall sebbaceous cyst s/p I&D on 06/14: Surgery f/u on dressing change today and will need surgical excision in office in 2-3 weeks. Keflex 500mg qid Day #2. 7. Itching: benadryl prn. 8. Mild transaminitis: f/u P33 in AM for trend. 9. Estimated LOS: 05/23/18. 06/15/18 10:02
--- NOTE | 2018-06-15 14:24 | PN ---
Progress Note - Progress Note Date of Service: 06/15/18 SOAP: Subjective:POD#1 s/p I&D left chest wall sebaceous cyst;less pain today [] Objective:afebrile;wound Left lateral chest wall clean,minimal erythema,no expressible pus or sebaceous material,no undrained collection;wound irrigated with NS and gently and loosely repacked with a corner of a 4x4 gauze and covered with a bulky 4x4 Gm stain shows neutrophils,no organisms [] Assessment:improved after I&D;continue Keflex [] Plan:May remove dressing for shower and then replace dressing as described above on 06/16 and 06/17/18;I will reassess on Monday06/18/18 []
[2018-06-15] MEDS: Senna TAB PO SCH (21:06)
[2018-06-15] MEDS: Cyclobenzaprine TAB* 10 MG PO PRN (21:07)
[2018-06-16] MEDS: Hydrocortisone 1% CREAM* 30 GM TUBE TOPICAL SCH ×3 (03:29→21:03)
[2018-06-16 06:42] LABS: EGFR Non-African American 115.4 (>60)
[2018-06-16] MEDS: oxyCODONE TAB* 5 MG TAB PO PRN ×4 (08:08→22:21)
[2018-06-16] MEDS: Enoxaparin(*) 30 MG/0.3 ML SYR SUBCUT SCH ×2 (09:52→20:56)
[2018-06-16] MEDS: Docusate CAP* 100 MG PO SCH ×2 (09:52→20:56)
[2018-06-16] MEDS: Cephalexin CAP* 500 MG PO SCH ×4 (09:52→20:55)
[2018-06-16] MEDS: prednisoLONE 1% OPHTH.SUSP* 5 ML OPHTH.SUSP LEFT EYE SCH (10:22)
--- NOTE | 2018-06-16 10:48 | PN ---
Progress Note Date of Service: 06/16/18 Note: CHIRAG ALMEIDA was visited. Nursing and therapy notes read and reviewed. Appreciate surgery f/u yesterday. Girlfriend coming in over weekend to learn dressing changes. Feels his right lower leg splint is loosening. Current Medications: Active Medications Generic Name Dose Route Start Last Admin Trade Name Freq PRN Reason Stop Dose Admin Acetaminophen 650 mg 06/11/18 16:30 06/15/18 05:12 Tylenol Tab* PO 650 mg Q6H PRN Administration FEVER/PAIN Cephalexin HCl 500 mg 06/14/18 13:00 06/16/18 09:52 Keflex Cap* PO 500 mg QID VIJAYA Administration Cyclobenzaprine HCl 10 mg 06/11/18 16:38 06/15/18 21:07 Flexeril Tab* PO 10 mg TID PRN Administration SPASMS Diphenhydramine HCl 50 mg 06/14/18 12:02 06/14/18 16:15 Benadryl Po* PO 50 mg Q6H PRN Administration ITCHING Docusate Sodium 100 mg 06/11/18 21:00 06/16/18 09:52 Colace Cap* PO 100 mg BID VIJAYA Administration Enoxaparin Sodium 30 mg 06/11/18 21:00 06/16/18 09:52 Lovenox(*) SUBCUT 30 mg Q12H VIJAYA Administration Hydrocortisone 1 applic 06/12/18 21:00 06/16/18 09:54 Hytone Cream 1%* TOPICAL Not Given BID VIJAYA Magnesium Hydroxide 30 ml 06/11/18 16:30 Milk Of Magnesia Liq* PO Q6H PRN CONSTIPATION Oxycodone HCl 5 mg 06/11/18 16:37 06/12/18 13:24 Roxycodone Tab* PO 5 mg Q4H PRN Administration PAIN - MODERATE TO SEVERE Oxycodone HCl 10 mg 06/11/18 16:39 06/16/18 08:08 Roxycodone Tab* PO 10 mg Q4H PRN Administration PAIN - SEVERE Prednisolone Acetate 1 drop 06/12/18 09:00 06/16/18 10:22 Pred Forte 1%* LEFT EYE 1 drop DAILY VIJAYA Administration Senna 2 tab 06/11/18 21:00 06/15/18 21:06 Senokot Tab* PO 2 tab BEDTIME VIJAYA Administration Vital Signs: Vital Signs Temp Pulse Resp BP Pulse Ox 97.9 F 76 18 115/52 96 06/16/18 06:20 06/16/18 06:20 06/16/18 10:28 06/16/18 06:20 06/16/18 08:00 Lab Results: Laboratory Results - last 24 hr 06/16/18 06:11 Sodium 138 Potassium 4.3 Chloride 103 Carbon Dioxide 29 Anion Gap 6 BUN 13 Creatinine 0.76 Est GFR ( Amer) 139.6 Est GFR (Non-Af Amer) 115.4 BUN/Creatinine Ratio 17.1 Glucose 99 Calcium 8.7 Total Bilirubin 0.50 AST 24 ALT 47 Alkaline Phosphatase 69 Total Protein 6.2 L Albumin 3.2 Globulin 3.0 Albumin/Globulin Ratio 1.1 Exam: GENERAL: No acute distress. Alert and appropriate. LUNGS; Clear to auscultation bilaterally. HEART: regular rate and rhythm ABDOMEN: Soft, + bowel sounds, non-tender, non-distended EXTREMITIES: RLE: thigh less swollen. His right lower leg in soft cast. [place] to right hip intact with minimal erythema. NEUROLOGIC: sensation intact x4. Can move 4 extremities SKIN: Left chest wall dressing c/d/i. Assessment/Plan: 1. Right subtrochanteric femur fracture, S/P IM Nail: f/u Dr. Gilman this week needs to be scheduled and should not wait until 06/26. Not a good candidate for knee weight bearing due to the severity and communition of his proximal femur fracture. PT/OT 2. Right bimalleolar ankle fracture s/p ORIF: PT/OT. NWB RLE. f/u Dr. Gilman this week needs to be scheduled and should not wait until 06/26 since splint loosening and has natacha/sutures. 3. Swelling right thigh: Doppler negative 4. DVT Prophylaxis: Lovenox 30 BID 5. Analgesia: Oxycodone 6. Left chest wall sebbaceous cyst s/p I&D on 06/14: Surgery f/u on Monday. Girlfriend to learn dressing changes. Will need surgical excision in office in 2 -3 weeks. Keflex 500mg qid Day #3. 7. Itching: benadryl prn. 8. Mild transaminitis: resolved. 9. Brain lesion seen on CT in ER concerning for meningioma: We discussed this and he knows he needs a PCP for f/u. We discussed options near [place]. Will see if we can get him an appt to establish primary care and f/u on brain lesion after d/c. 10. Estimated LOS: Discussed case with therapists yesterday. Changed d/c date to Monday. 06/16/18 10:45
[2018-06-16] MEDS: Cyclobenzaprine TAB* 10 MG PO PRN (13:04)
[2018-06-16] MEDS: Senna TAB PO SCH (20:55)
[2018-06-16] MEDS: Acetaminophen TAB* 325 MG PO PRN (21:03)
[2018-06-17] MEDS: Hydrocortisone 1% CREAM* 30 GM TUBE TOPICAL SCH ×2 (07:42→20:54)
[2018-06-17] MEDS: Enoxaparin(*) 30 MG/0.3 ML SYR SUBCUT SCH ×2 (08:50→20:50)
[2018-06-17] MEDS: Cephalexin CAP* 500 MG PO SCH ×4 (08:50→20:49)
[2018-06-17] MEDS: prednisoLONE 1% OPHTH.SUSP* 5 ML OPHTH.SUSP LEFT EYE SCH (08:50)
[2018-06-17] MEDS: Docusate CAP* 100 MG PO SCH ×2 (08:50→20:49)
[2018-06-17] MEDS: oxyCODONE TAB* 5 MG TAB PO PRN ×4 (08:51→23:18)
--- NOTE | 2018-06-17 09:10 | PN ---
Progress Note Date of Service: 06/17/18 Note: CHIRAG De Oliveira ELLE was visited. Nursing and therapy notes read and reviewed. No chest pain, shortness of breath or abdominal pain. Current Medications: Active Medications Generic Name Dose Route Start Last Admin Trade Name Freq PRN Reason Stop Dose Admin Acetaminophen 650 mg 06/11/18 16:30 06/16/18 21:03 Tylenol Tab* PO 650 mg Q6H PRN Administration FEVER/PAIN Cephalexin HCl 500 mg 06/14/18 13:00 06/17/18 08:50 Keflex Cap* PO 500 mg QID VIJAYA Administration Cyclobenzaprine HCl 10 mg 06/11/18 16:38 06/16/18 13:04 Flexeril Tab* PO 10 mg TID PRN Administration SPASMS Diphenhydramine HCl 50 mg 06/14/18 12:02 06/14/18 16:15 Benadryl Po* PO 50 mg Q6H PRN Administration ITCHING Docusate Sodium 100 mg 06/11/18 21:00 06/17/18 08:50 Colace Cap* PO 100 mg BID VIJAYA Administration Enoxaparin Sodium 30 mg 06/11/18 21:00 06/17/18 08:50 Lovenox(*) SUBCUT 30 mg Q12H VIJAYA Administration Hydrocortisone 1 applic 06/12/18 21:00 06/17/18 07:42 Hytone Cream 1%* TOPICAL Not Given BID VIJAYA Magnesium Hydroxide 30 ml 06/11/18 16:30 Milk Of Magnesia Liq* PO Q6H PRN CONSTIPATION Oxycodone HCl 5 mg 06/11/18 16:37 06/12/18 13:24 Roxycodone Tab* PO 5 mg Q4H PRN Administration PAIN - MODERATE TO SEVERE Oxycodone HCl 10 mg 06/11/18 16:39 06/17/18 08:51 Roxycodone Tab* PO 10 mg Q4H PRN Administration PAIN - SEVERE Prednisolone Acetate 1 drop 06/12/18 09:00 06/17/18 08:50 Pred Forte 1%* LEFT EYE 1 drop DAILY VIJAYA Administration Senna 2 tab 06/11/18 21:00 06/16/18 20:55 Senokot Tab* PO 2 tab BEDTIME VIJAYA Administration Vital Signs: Vital Signs Temp Pulse Resp BP Pulse Ox 98.7 F 92 18 114/74 99 06/17/18 05:41 06/17/18 05:41 06/17/18 08:51 06/17/18 05:41 06/17/18 05:41 Lab Results: Wound culture with 1+ staph lugdenesis. Pending sensitivities. Exam: GENERAL: No acute distress. Alert and appropriate. LUNGS; Clear to auscultation bilaterally. HEART: regular rate and rhythm ABDOMEN: Soft, + bowel sounds, non-tender, non-distended EXTREMITIES: right thigh less swollen. His right lower leg in soft cast. [place] to right hip intact with minimal erythema. NEUROLOGIC: sensation intact x4. Can move 4 extremities SKIN: Left chest wall dressing c/d/i. Assessment/Plan: 1. Right subtrochanteric femur fracture, S/P IM Nail: f/u Dr. Gilman this week needs to be scheduled and should not wait until 06/26. Not a good candidate for knee weight bearing due to the severity and communition of his proximal femur fracture. PT/OT 2. Right bimalleolar ankle fracture s/p ORIF: PT/OT. NWB RLE. f/u Dr. Gilman this week needs to be scheduled and should not wait until 06/26 since splint loosening and has natacha/sutures. 3. Swelling right thigh: Doppler negative 4. DVT Prophylaxis: Lovenox 30 BID. Has learned self administration. 5. Analgesia: Oxycodone 6. Left chest wall sebbaceous cyst s/p I&D on 06/14: Surgery f/u on Monday. Girlfriend to learned dressing changes. Will need surgical excision in office in 2-3 weeks. Keflex 500mg qid Day #4. Wound culture has grown 1+ staph lugdenesis. F/u sensitivities. 7. Itching: benadryl prn. 8. Mild transaminitis: resolved. 9. Brain lesion seen on CT in ER concerning for meningioma: We discussed this and he knows he needs a PCP for f/u. We discussed options near [place]. Will see if we can get him an appt to establish primary care and f/u on brain lesion after d/c. 10. Estimated LOS: d/c plannned for Monday. 06/17/18 09:07
[2018-06-17] MEDS: Cyclobenzaprine TAB* 10 MG PO PRN ×2 (12:52→20:50)
[2018-06-17] MEDS: Senna TAB PO SCH (20:50)
[2018-06-18] MEDS: oxyCODONE TAB* 5 MG TAB PO PRN ×3 (06:10→15:11)
[2018-06-18] MEDS: Docusate CAP* 100 MG PO SCH (09:25)
[2018-06-18] MEDS: Cephalexin CAP* 500 MG PO SCH ×3 (09:26→16:50)
[2018-06-18] MEDS: Enoxaparin(*) 30 MG/0.3 ML SYR SUBCUT SCH (09:26)
[2018-06-18] MEDS: Hydrocortisone 1% CREAM* 30 GM TUBE TOPICAL SCH (09:30)
[2018-06-18] MEDS: prednisoLONE 1% OPHTH.SUSP* 5 ML OPHTH.SUSP LEFT EYE SCH (09:31)
--- NOTE | 2018-06-18 09:31 | PN ---
Progress Note - Progress Note Date of Service: 06/18/18 SOAP: Subjective:POD#4 S/P I&D SEBACEOUS CYST LEFT LATERAL CHEST WALL no pain,showered over wound [] Objective:afeb;open wound left lateral chest wall clean and granulating,no erythema,no drainage,no undrained collection [] Assessment:healing wound s/p I&D [] Plan:continue Keflex for total of 10 days;followup in our office 2-3 weeks for formal excision;shower daily and cover with dry 4x4;no packing needed []
[2018-06-18] MEDS: Cyclobenzaprine TAB* 10 MG PO PRN (16:52)
[2018-06-18 16:59] VITALS: BP 111/66
--- NOTE | 2018-06-19 14:36 | DS ---
CC: Dr. Villa * DISCHARGE SUMMARY: DATE OF ADMISSION: 06/11/18 DATE OF DISCHARGE: 06/18/18 DISCHARGE DIAGNOSES: 1. Right subtrochanteric femur fracture. 2. Right bimalleolar ankle fracture. 3. History of alcohol abuse. 4. Possible meningioma. 5. History of slipped capital femoral epiphysis, bilateral. 6. Sebaceous cyst. HISTORY OF ILLNESS AND HOSPITAL COURSE: For complete history of the events leading up to his rehab stay, please see the history and physical dictated by me on 06/11/18. While on the rehab unit, the patient had a swollen right leg on admission. A venous Doppler study was done on 06/13/18, which was negative for any DVT. The patient was noted to have a sebaceous cyst over his left rib cage. He had been to the emergency room in the past for treatment for this, that was 4 months ago. It returned about a month ago and he failed to express it. It showed up again on 06/14/18. A Surgery consult was done. Christina Smith came to see the patient and did an I and D of the area. The patient was put on Keflex. The patient was given instructions to follow up with Dr. Lowrey for excision. Otherwise, the patient was largely medically stable. He was maintained on Lovenox for DVT prophylaxis. He received adequate analgesia with oral analgesics. The patient was seen by both Physical and Occupational Therapy and made good gains with both disciplines. With physical therapy at the time of admission, the patient required min assist to do a transfer. He was not able to ambulate with occupational therapy at the time of admission. The patient required max assist for lower body dressing, min assist for toilet transfers, max assist for toileting. By the time of discharge, the patient was independent in transfers, independent with axillary crutches, ambulating 300 feet independent going up and down stairs with axillary crutches and 1 rail, independent with activities of daily living. The patient was discharged home on 06/18/18. DISCHARGE DIET: Regular. DISCHARGE MEDICATIONS: Included: 1. Lovenox 30 mg subcutaneously twice daily. 2. Keflex 500 mg orally 4 times a day. 3. Flexeril 10 mg twice daily as needed. 4. Oxycodone 5 to 10 mg every 4 hours as needed. 5. Colace 100 mg twice a day. 6. Prednisolone 1% ophthalmic solution 1 drop to the left eye daily. SERVICES AFTER DISCHARGE: Through visiting nurse service. He will have halfway and home physical therapy. FOLLOWUP: Follow up with Dr. Wm Lowery in 2 to 3 weeks. He will also follow up with [facility] tomorrow for suture removal and he will follow up with his primary care doctor, Dr. Villa. Please note, the patient had a mass seen on his CAT scan of his brain, which was done at [facility]. A 2.5 cm hyperdense mass was seen within the anterior cranial fossa. It was felt that it was consistent with a meningioma. He will need further workup for this with Dr. Villa. TIME SPENT: Time spent on this discharge was approximately 55 minutes, greater than half of which was spent discussing [id number] with the patient and his girlfriend post-rehabilitation followup for surgery, alcohol abuse, analgesia, and Orthopedics. [id number]/CPS #: [id number] CHAPIS
== END 2018-06-18 17:35 | disposition home health service (06) | DRG 860 ==
LOC: PMRU 15:27
PROVIDERS: ADMIT Physical Medicine & Rehabilitation; ATTEND Physical Medicine & Rehabilitation
PROC: 0H95XZZ Drainage of Chest Skin, External Approach (ICD-10-PCS; principal; 2018-06-11)
PROC: F07Z5ZZ Bed Mobility Treatment (ICD-10-PCS; 2018-06-11)
PROC: F07Z9ZZ Gait Training/Functional Ambulation Treatment (ICD-10-PCS; 2018-06-11)
PROC: F07Z8ZZ Transfer Training Treatment (ICD-10-PCS; 2018-06-11)
PROC: F08Z0ZZ Bathing/Showering Techniques Treatment (ICD-10-PCS; 2018-06-11)
PROC: F08Z1ZZ Dressing Techniques Treatment (ICD-10-PCS; 2018-06-11)
PROC: F08Z3ZZ Feeding/Eating Treatment (ICD-10-PCS; 2018-06-11)
DX: S72.21XD Displaced subtrochanteric fracture of right femur, subsequent encounter for closed fracture with routine healing (principal); S82.841D Displaced bimalleolar fracture of right lower leg, subsequent encounter for closed fracture with routine healing; W10.8XXD Fall (on) (from) other stairs and steps, subsequent encounter; L72.3 Sebaceous cyst; D32.0 Benign neoplasm of cerebral meninges; F10.10 Alcohol abuse, uncomplicated; F17.210 Nicotine dependence, cigarettes, uncomplicated; R74.0 Nonspecific elevation of levels of transaminase and lactic acid dehydrogenase [LDH]; M79.89 Other specified soft tissue disorders
CPT/HCPCS: 36415; 80053; 85025; 87070; 87077; 87186; 87205; A9270-GY; J1650

== ENCOUNTER 2018-10-27 15:13 | Emergency (ER) | payer BC ==
[2018-10-27 15:54] VITALS: BP 156/98
--- NOTE | 2018-10-27 15:54 | UC ---
Dental HPI - HPI Summary HPI Summary: 38-year-old male comes in with a chief complaint of left cheek swelling and dental pain. Patient is left upper molar dental pain and he now has swelling in his left cheek adjacent to the left upper molars which all started today. He had a swelling in his lower jaw recently which she was able to drain which improved it. Pushing on this swallowing makes the pain worse. Chewing makes the pain worse. No difficulty swallowing. No fevers. - History of Current Complaint Stated Complaint: DENTAL Time Seen by Provider: 10/27/18 15:49 - Allergies/Home Medications Allergies/Adverse Reactions: Allergies Allergy/AdvReac Type Severity Reaction Status Date / Time No Known Allergies Allergy Verified 06/05/18 00:29 PMH/Surg Hx/FS Hx/Imm Hx Previously Healthy: Yes - LEFT EYE VIRAL INFECTION CHRONIC - Surgical History Surgical History: Yes Surgery Procedure, Year, and Place: bilateral hip pinning - Family History Known Family History: Positive: Cardiac Disease, Hypertension Family History: NON CONTRIBUTORY - Social History Alcohol Use: Occasionally Substance Use Type: None Smoking Status (MU): Heavy Every Day Tobacco Smoker Type: Cigarettes Amount Used/How Often: 1 pack daily Length of Time of Smoking/Using Tobacco: 15 years Have You Smoked in the Last Year: Yes - Immunization History Most Recent Influenza Vaccination: never Most Recent Pneumonia Vaccination: never Review of Systems All Other Systems Reviewed And Are Negative: Yes Constitutional: Positive: Negative Skin: Positive: Negative Eyes: Positive: Other - CHRONIC LEFT EYE VIRAL INFEECTION ENT: Positive: Dental Pain Respiratory: Positive: Negative Cardiovascular: Positive: Negative Gastrointestinal: Positive: Negative Motor: Positive: Negative Neurovascular: Positive: Negative Musculoskeletal: Positive: Negative Neurological: Positive: Negative Psychological: Positive: Negative Is Patient Immunocompromised?: No Physical Exam Triage Information Reviewed: Yes Appearance: Well-Appearing, No Pain Distress, Well-Nourished Vital Signs Reviewed: Yes Eyes: Positive: Other: - OPAQUE LEFT CORNEA; CHRONIC ENT: Positive: Pharynx normal, Uvula midline. Negative: Muffled voice, Hoarse voice Dental: Positive: Gross Decay/Caries @ - LEFT UPPER MOLAR, Abscess @ - LEFT UPPER LATERAL CHEEK SWELLING Neck: Positive: Supple Respiratory: Positive: No respiratory distress Neurological: Positive: Alert, Muscle Tone Normal Psychological Exam: Normal Psychological: Positive: Age Appropriate Behavior Skin Exam: Normal Dental Complaint Course/Dx - Differential Dx/Diagnosis Provider Diagnosis: Dental abscess Discharge - Sign-Out/Discharge Documenting (check all that apply): Patient Departure All imaging exams completed and their final reports reviewed: No Studies - Discharge Plan Condition: Stable Disposition: HOME Prescriptions: Amoxicillin PO (*) [Amoxicillin 500 MG CAP*] 500 mg PO TID #30 cap Patient Education Materials: Dental Abscess (ED) Referrals: [facility] [place] [facility] [place]Outside] Additional Instructions: FOLLOW UP WITH YOUR DENTIST. GET REEVALUATED SOONER FOR WORSENING OF YOUR CONDITION OR QUESTIONS OR CONCERNS. - Billing Disposition and Condition Condition: STABLE Disposition: Home
== END 2018-10-27 16:04 | disposition home or self-care (01) ==
LOC: UCEAST 15:13
DX: K04.7 Periapical abscess without sinus (principal); F17.210 Nicotine dependence, cigarettes, uncomplicated; H44.002 Unspecified purulent endophthalmitis, left eye; B97.89 Other viral agents as the cause of diseases classified elsewhere; H18.892 Other specified disorders of cornea, left eye
CPT/HCPCS: 99212; G0463

== ENCOUNTER 2019-01-03 14:59 | Emergency (ER) | payer BC ==
[2019-01-03 15:19] VITALS: BP 163/85
[2019-01-03] MEDS ORDERED: Penicillin VK TAB* 250 MG PO ONE (15:27)
--- NOTE | 2019-01-03 15:36 | UC ---
[facility] Dental HPI - HPI Summary HPI Summary: 38 yo male with left lower dental pain x 3-4 days worse last PM...unable to sleep now with left jaw swellling no fever no n/cv no hx DM or heart murmur - History of Current Complaint Chief Complaint: UCDentalProblem Stated Complaint: tooth ache Time Seen by Provider: 01/03/19 15:10 Hx Obtained From: Patient Onset/Duration: Gradual Onset, Lasting Days Severity: Severe Pain Intensity: 8 Pain Scale Used: 0-10 Numeric Aggravating Factor(s): Heat, Cold, Chewing Alleviating Factor(s): Nothing Related History: Swelling Dental: 1 - abscess 2 - rotted - Allergies/Home Medications Allergies/Adverse Reactions: Allergies Allergy/AdvReac Type Severity Reaction Status Date / Time No Known Allergies Allergy Verified 06/05/18 00:29 PMH/Surg Hx/FS Hx/Imm Hx Previously Healthy: Yes - Surgical History Surgical History: Yes Surgery Procedure, Year, and Place: bilateral hip pinning - Family History Known Family History: Positive: Cardiac Disease, Hypertension Family History: NON CONTRIBUTORY - Social History Alcohol Use: Occasionally Substance Use Type: None Smoking Status (MU): Heavy Every Day Tobacco Smoker Type: Cigarettes Amount Used/How Often: 1 pack daily Length of Time of Smoking/Using Tobacco: 15 years Have You Smoked in the Last Year: Yes - Immunization History Most Recent Influenza Vaccination: never Most Recent Pneumonia Vaccination: never Review of Systems All Other Systems Reviewed And Are Negative: Yes Constitutional: Positive: Negative Skin: Positive: Negative Eyes: Positive: Eye Redness - L ...herpes keratitis ENT: Positive: Dental Pain Respiratory: Positive: Negative Cardiovascular: Positive: Negative Gastrointestinal: Positive: Negative Genitourinary: Positive: Negative Motor: Positive: Negative Neurovascular: Positive: Negative Musculoskeletal: Positive: Negative Neurological: Positive: Negative Psychological: Positive: Negative Physical Exam Triage Information Reviewed: Yes Appearance: Well-Appearing, No Pain Distress, Well-Nourished Vital Signs: Initial Vital Signs Temp 99.2 F 01/03/19 15:13 Pulse 97 01/03/19 15:13 Resp 18 01/03/19 15:13 BP 163/85 01/03/19 15:13 Pulse Ox 99 01/03/19 15:13 Vital Signs Reviewed: Yes Eyes: Positive: Conjunctiva Inflamed - L with cloudy cornea ENT: Positive: Hearing grossly normal. Negative: Nasal congestion, Nasal drainage, Tonsillar swelling, Tonsillar exudate, Muffled voice, Hoarse voice Dental: Positive: Other: - see image Neck: Positive: Supple, Nontender, No Lymphadenopathy Respiratory: Positive: Lungs clear, Normal breath sounds, No respiratory distress Cardiovascular: Positive: RRR, No Murmur Neurological: Positive: Alert Psychological Exam: Normal Skin Exam: Normal Images Head: 1 - swollen Dental Complaint Course/Dx - Differential Dx/Diagnosis Provider Diagnosis: Dental abscess, Elevated BP without diagnosis of hypertension Discharge - Sign-Out/Discharge Documenting (check all that apply): Patient Departure All imaging exams completed and their final reports reviewed: No Studies - Discharge Plan Condition: Stable Disposition: HOME Prescriptions: HYDROcodone/ACETAMIN 5-325 MG* [[place] 5-325 TAB*] 1 tab PO Q4H PRN #8 tab MDD 4 PRN Reason: Pain Ibuprofen TAB* [Motrin TAB*] 600 mg PO QID PRN #40 tab PRN Reason: Pain Penicillin VK 500 MG TAB(NF) [Penicillin VK 500 mg Tab] 500 mg PO QID #28 tab Patient Education Materials: Dental Abscess (ED), Warm Compress or Soak (ED) Forms: *Gen. Provider Communication Referrals: Moise Villa MD [Primary Care Provider] - 2 Weeks (bp rechecfk in 2-12 weeks is suggested) Additional Instructions: warm compresses TO ER FOR WORSENING SYMPTOMS OR IF NOT MARKEDLY IMPROVED IN 48 HOURS You need to make every effort to see a dentist about your tooth Opioid-containing medications can cause drowsiness and sedation. You t should not drive or operate machinery or similar activities while taking this medication. Opioids can also cause a positive drug screen, and can be habit- forming. You should follow the instructions exactly and not take any extra medication. Opioid medications should be stored in a secure manner to avoid diversion or theft. You should not drink alcohol while taking these medications - Billing Disposition and Condition Condition: STABLE Disposition: Home
== END 2019-01-03 15:50 | disposition home or self-care (01) ==
LOC: UCEAST 14:59
DX: K04.7 Periapical abscess without sinus (principal); R03.0 Elevated blood-pressure reading, without diagnosis of hypertension; F17.210 Nicotine dependence, cigarettes, uncomplicated
CPT/HCPCS: 99212; A9270-GY; G0463

== ENCOUNTER 2019-06-15 14:26 | Emergency (ER) | payer BC ==
[2019-06-15 14:47] VITALS: BP 134/95
--- NOTE | 2019-06-15 15:14 | UC ---
[facility] Dental HPI - HPI Summary HPI Summary: left lower dental pain and swelling began last night - History of Current Complaint Chief Complaint: UCDentalProblem Stated Complaint: TOOTH INFECTION Time Seen by Provider: 06/15/19 15:03 Hx Obtained From: Patient Onset/Duration: Sudden Onset, Lasting Days - 1 Pain Intensity: 7 Pain Scale Used: 0-10 Numeric Aggravating Factor(s): Heat, Cold, Chewing, Nothing Related History: Previous Dental Care on Same Tooth - Allergies/Home Medications Allergies/Adverse Reactions: Allergies Allergy/AdvReac Type Severity Reaction Status Date / Time No Known Allergies Allergy Verified 06/15/19 14:47 Home Medications: Home Medications Ibuprofen TAB* [Motrin TAB*] 1,200 mg PO ONCE PRN 06/15/19 [History Confirmed ] PMH/Surg Hx/FS Hx/Imm Hx Previously Healthy: Yes - Surgical History Surgical History: Yes Surgery Procedure, Year, and Place: bilateral hip pinning - Family History Known Family History: Positive: Cardiac Disease, Hypertension Family History: NON CONTRIBUTORY - Social History Occupation: Employed Full-time Lives: With Family Alcohol Use: None Substance Use Type: None Smoking Status (MU): Heavy Every Day Tobacco Smoker Type: Cigarettes Amount Used/How Often: 1 pack daily Length of Time of Smoking/Using Tobacco: 15 years Have You Smoked in the Last Year: Yes - Immunization History Most Recent Influenza Vaccination: never Most Recent Pneumonia Vaccination: never Review of Systems All Other Systems Reviewed And Are Negative: Yes Constitutional: Positive: Negative Skin: Positive: Negative Eyes: Positive: Negative ENT: Positive: Dental Pain - lower dental pain Respiratory: Positive: Negative Cardiovascular: Positive: Negative Gastrointestinal: Positive: Negative Genitourinary: Positive: Negative Motor: Positive: Negative Neurovascular: Positive: Negative Musculoskeletal: Positive: Negative Neurological: Positive: Negative Psychological: Positive: Negative Is Patient Immunocompromised?: No Physical Exam Triage Information Reviewed: Yes Appearance: Well-Appearing, No Pain Distress, Well-Nourished Vital Signs: Initial Vital Signs Temp 98.8 F 06/15/19 14:45 Pulse 83 06/15/19 14:45 Resp 16 06/15/19 14:45 BP 134/95 06/15/19 14:45 Pulse Ox 99 06/15/19 14:45 Vital Signs Reviewed: Yes Eye Exam: Normal Eyes: Positive: Conjunctiva Clear ENT Exam: Normal ENT: Positive: Normal ENT inspection, Hearing grossly normal, Pharynx normal, TMs normal, Uvula midline. Negative: Pharyngeal erythema, Trismus, Muffled voice, Hoarse voice, Sinus tenderness Dental Exam: Other Dental: Positive: Percussion Tenderness @ - left lower teeth Neck exam: Normal Neck: Positive: Supple, Nontender Respiratory Exam: Normal Respiratory: Positive: Chest non-tender, No respiratory distress, No accessory muscle use Cardiovascular Exam: Normal Cardiovascular: Positive: RRR, Pulses Normal, Brisk Capillary Refill Musculoskeletal Exam: Normal Musculoskeletal: Positive: Strength Intact, ROM Intact, No Edema Neurological Exam: Normal Neurological: Positive: Alert, Muscle Tone Normal Psychological Exam: Normal Skin Exam: Normal Dental Complaint Course/Dx - Course Course Of Treatment: Augmentin ibuprofen follow with dentist on Monday! - Differential Dx/Diagnosis Provider Diagnosis: Pain due to dental caries Discharge ED - Sign-Out/Discharge Documenting (check all that apply): Patient Departure All imaging exams completed and their final reports reviewed: No Studies - Discharge Plan Condition: Stable Disposition: HOME Prescriptions: Amoxicillin/Clavulanate TAB* [Augmentin TAB 875*] 875 mg PO BID #20 tab Patient Education Materials: Dental Abscess (ED) Referrals: Moise Villa MD [Primary Care Provider] - Additional Instructions: Follow up with dentist on Monday!! - Billing Disposition and Condition Condition: STABLE Disposition: Home
== END 2019-06-15 15:24 | disposition home or self-care (01) ==
LOC: UCEAST 14:26
DX: K02.9 Dental caries, unspecified (principal); K08.89 Other specified disorders of teeth and supporting structures; F17.210 Nicotine dependence, cigarettes, uncomplicated
CPT/HCPCS: 99212; G0463